=== PATIENT | female | born 1955 | race Caucasian/White ===

== ENCOUNTER 2023-11-05 12:03 | Emergency (ER) | payer OTHER, SELFPAY ==
[2023-11-05 12:24] VITALS: BP 135/90
[2023-11-05 13:02] LABS: ALT (SGPT) 14 U/L (0-35); AST (SGOT) 16 U/L (14-36); Albumin 3.8 g/dl (3.5-5.0); Alkaline Phosphatase 110 U/L (38-126); Blood Urea Nitrogen 11 mg/dl (7-17); Carbon Dioxide 30 mmol/L (22-30); Chloride 106 mmol/L (98-107); Glucose 108 mg/dl (70-99); Sodium 138 mmol/L (135-145); Total Bilirubin 0.6 mg/dl (0.2-1.3); Total Protein 6.8 g/dl (6.3-8.2); eGFR > 60.00
[2023-11-05 13:05] LABS: % Basophils 0.4 % (0-2); % Eosinophils 0.8 % (0-6); % Immature Granulocytes 0.5 % (0-0.5); % Lymphocytes 18.5 % (20.5-51.1); % Neutrophils 72.8 % (42.2-75.2); Absolute Eosinophils 0.1 10^3/uL (0-0.7); Absolute Immature Granulocytes 0.1 10^3/uL (0-0.05); Absolute Lymphocytes 1.9 10^3/uL (1.2-3.4); Absolute Monocytes 0.7 10^3/uL (0.1-0.6); Absolute Neutrophils 7.3 10^3/uL (1.4-6.5); Hematocrit 39.5 % (37.0-47.0); Hemoglobin 13.2 g/dL (12.0-16.0); Mean Corp Hgb Conc. 33.4 g/dL (33.0-37.0); Mean Corpuscular Hgb 29.5 pg (27.0-31.0); Mean Corpuscular Volume 88.4 fL (81.0-99.0); Mean Platelet Volume 9.3 fL (7.4-10.4); Nucleated Red Blood Cells % 0 %; Platelet Count 301 10^3/uL (130-400); Red Blood Cell Count 4.47 10^6/uL (4.20-5.40)
[2023-11-05 13:08] LABS: Urine Albumin Trace (Neg - Trace); Urine Bilirubin Negative (Negative); Urine Character Clear (Clear); Urine Color Yellow; Urine Glucose Negative (Negative); Urine Ketone Negative (Negative); Urine Leukocyte 2+ (Negative); Urine Nitrite Positive (Negative); Urine Occult Blood 4+ (Negative); Urine Urobilinogen Negative (Neg - 1+)
[2023-11-05 14:04] LABS: Urine Bacteria Moderate (Negative); Urine White Cell 16-20 /HPF (0-5)
[2023-11-05 14:05] LABS: Urine Red Blood Cell 0-2 /HPF (0-2)
--- NOTE | 2023-11-05 14:29 | ED.GENMED ---
Addendum entered and electronically signed by Jovan Jaeger PA-C 11/08/23 07:40:
Pansensitivity E coli, on appropriate abx
Addendum entered and electronically signed by Sheila Díaz PA-C 11/07/23 07:16:
e coli prelim urine culture, on cefpodoxime; await sensitivities.
Original Note:
History of Present Illness
General
Chief Complaint: Urinary Symptoms
Source: patient
Exam Limitations: none
Time Seen by Provider: 11/05/23 14:15
Nursing documentation reviewed up to this point in time: agreed with
Travel History
Have you had any contact with someone who has COVID-19?: No
Do you have any symptoms of coronavirus? Fever > 100 degrees, chills, cough, shortness of breath, sore throat, loss of taste or smell, muscle aches, or headache?: No
History of Present Illness
History of Present Illness:
67-year-old female with past medical history of hyperlipidemia presenting to the emergency department today with concerns of left-sided low back discomfort with associated progressive worsening urinary pressure over the past week. Worsening over
the past 24 hours. Denies specific fevers. Has had nausea no vomiting. Denies any history of kidney stones. Did notice a red discoloration of her urine today.
Past History
Past History
ED Past Medical History: Hypercholesterolemia
ED Past Surgical History: Gynecological
Review of Systems
Review of Systems
Allergies reviewed?: Yes
All Other Systems: ROS reviewed and negative except as documented in HPI and ROS
Phy Exam
Physical Exam
Physical Exam:
GENERAL: Alert , in no apparent distress
EYE: pupils equal and reactive
NECK: Supple, no significant adenopathy.
ENT: o/p clr, mmm.
CARDIAC: Regular rate and rhythm .
LUNGS: Clear breath sounds bilaterally, no acute respiratory distress, no wheezes/rales/rhonchi
ABDOMEN: Soft, without focal tenderness, no r/g, no cvat
NEUROLOGICAL: Alert and oriented, no focal neuro deficits
SKIN: Warm and dry, skin intact.
MUSCULOSKELETAL: No edema, well perfused.
PSYCH: Normal and appropriate interaction.
Course
Orders/Labs/Results
Orders:
Orders
11/05/23 12:35
Complete Blood Count/With Diff Urgent
Comprehensive Metabolic Panel Urgent
Urinalysis Reflex To Culture Urgent
Date Specimen was Collected: 11/05/23
Time Specimen was Collected: 12:27
Urine Microscopic Reflex Cult Urgent
Urine Culture Urgent
AUDREY Source: U
Specimen Description:
Date Specimen was Collected: 11/05/23
Time Specimen was Collected: 12:27
11/05/23 14:23
CT Abd/pel Without Iv Or Oral Urgent
Comment:
Reason For Exam: left flank pain, stone search
Ketorolac [Toradol] 30 mg IV NOW STA
Ondansetron Injectable [Zofran] 4 mg IV NOW STA
11/05/23 14:24
0.9% Sodium Chloride 1000 ml [Nss] 1,000 ml IV BOLUS
11/05/23 14:29
CefTRIAXone [Rocephin] 1,000 mg IV NOW STA
11/05/23 17:49
HYDROmorphone [Dilaudid] 1 mg IV NOW STA
11/05/23 18:03
Phenazopyridine HCl [Pyridium] 200 mg PO NOW STA
Abnormal Lab Results
11/05/23
12:35
Abs Immat Gran (auto) 0.1 H 10^3/uL
(0-0.05)
Absolute Neuts (auto) 7.3 H 10^3/uL
(1.4-6.5)
Absolute Monos (auto) 0.7 H 10^3/uL
(0.1-0.6)
Lymphocytes % 18.5 L %
(20.5-51.1)
Creatinine 0.5 L mg/dL
(0.6-1.0)
Glucose 108 H mg/dl
(70-99)
Ur Occult Blood Reflex 4+ A
(Negative)
Urine Nitrite (Reflex) Positive A
(Negative)
Leukocyte Esterase Rfl 2+ A
(Negative)
Urine WBC (Reflex) 16-20 A /HPF
(0-5)
Urine Bacteria (Reflex) Moderate A
(Negative)
11/05/23 12:35
11/05/23 12:35
Vital Signs
Initial and Last Documented VS:
Initial Vital Signs
Temp Pulse Resp BP Pulse Ox
98.2 F 81 16 135/90 98
11/05/23 12:24 11/05/23 12:24 11/05/23 12:24 11/05/23 12:24 11/05/23 12:24
Last Documented Vital Signs
Temp Pulse Resp BP Pulse Ox
98.2 F 81 16 135/90 98
11/05/23 12:24 11/05/23 12:24 11/05/23 12:24 11/05/23 12:24 11/05/23 12:24
MDM/Problems Addressed
MDM/Problems Addressed:
67-year-old female presenting to the emergency department today with concerns of initial left-sided flank discomfort that is now developed into urinary frequency urgency and hematuria. Upon arrival vital signs are normal. Patient does appear
uncomfortable on physical examination. No white count. Renal function normal. Urinalysis consistent with likely infection. Patient was started on ceftriaxone. Plan for CT scan for further assessment of possible stone. CT scan without emergent
findings labs without significant white count normal renal function urinalysis is consistent with UTI will start on ceftriaxone and will be discharged on cefpodoxime otherwise we will follow-up closely as an outpatient return precautions were given.
*Critical Care Note
Total Time (30-74mins, 75-104mins- exclusive of procedures): Not Applicable
ED Attending Note
-
Portions of this chart may have been created with voice recognition software.� Occasional wrong word or��sound alike� substitutions may have occurred due to the inherent limitations of voice recognition software.
Discharge Plan
Departure
Patient Disposition: Home (Routine Discharge)
Date of Disposition: 11/05/23
Time of Disposition: 18:12
Patient with high blood pressure during this ER visit?: No
Condition: Good
Covid-19: Not Applicable
Discharge Problem:
Acute UTI
Instructions: Urinary Tract Infection, Adult (DC)
Prescriptions:
New
cefpodoxime 200 mg tablet
200 mg PO BID 10 Days Qty: 20 0RF
phenazopyridine [Pyridium] 200 mg tablet
200 mg PO TID PRN (Reason: Pain) Qty: 6 0RF
No Action
amoxicillin-pot clavulanate 875-125 mg tablet
1 tab PO BID Qty: 20 0RF
famotidine 20 mg tablet
20 mg PO BID Qty: 14 0RF
Referrals:
Jose Jacobs DO [Family Provider] -
Activity Restrictions/Additional Instructions:
You came to the emergency department today with concerns of urinary symptoms. You are found have a urinary tract infection. You are treated with antibiotics believes take the antibiotic twice daily for the next 10 days and take the Pyridium for
discomfort. Return to the emergency department for any worsening, new or concerning symptoms. Otherwise follow-up closely with your primary care doctor for reassessment.
Interventions
Interventions:
*Risk Screen - Suicide Last Done: 11/05/23 16:27
*Neglect/Abuse Screening Last Done: 11/05/23 16:27
ED-Female Genitourinary Assessment Last Done: 11/05/23 16:21
[2023-11-05] MEDS: ROCEPHIN 1000 MG IV (14:42)
[2023-11-05] MEDS: TORADOL 30 MG IV (14:42)
[2023-11-05] MEDS: NSS 1000 IV (14:43)
[2023-11-05] MEDS: ZOFRAN 4 MG IV (14:43)
[2023-11-05] MEDS: DILAUDID 1 MG IV (18:10)
[2023-11-05] MEDS: Pyridium 200 MG PO (18:10)
[2023-11-05 18:47] VITALS: BP 151/81
== END 2023-11-05 18:48 | disposition home or self-care (01) ==
LOC: EMR 12:03
PROVIDERS: Emergency Medicine; EMERGENCY PHYSICIAN Emergency Medicine; FAMILY PHYSICIAN Family Medicine
DX: N39.0 Urinary tract infection, site not specified (principal)
CPT/HCPCS: 99284; 96374; 96375 ×3; 96361; 74176; 80053; 81003; 81015; 85025; 87077; 87086; 87186

== ENCOUNTER → 2025-02-16 11:53 | Outpatient (REF) | payer OTHER, SELFPAY | LOC: RAD 11:53 | PROVIDERS: ATTENDING PHYSICIAN Family Medicine | DX: Z12.31 Encounter for screening mammogram for malignant neoplasm of breast (principal); M54.32 Sciatica, left side | CPT/HCPCS: 72110; 77063; 77067 ==

== ENCOUNTER → 2025-02-26 09:45 | Outpatient (REF) | payer OTHER, SELFPAY | LOC: RAD 09:45 | PROVIDERS: ATTENDING PHYSICIAN Family Medicine | DX: Z78.0 Asymptomatic menopausal state (principal) | CPT/HCPCS: 77080 ==

== ENCOUNTER 2025-03-15 09:02 | Emergency (ER) | payer OTHER, SELFPAY ==
[2025-03-15 09:05] VITALS: BP 140/83
--- NOTE | 2025-03-15 09:21 | ED.GENMED ---
History of Present Illness
General
Chief Complaint: Cold/Flu/URI Symptoms
Source: patient and spouse
Exam Limitations: none
Time Seen by Provider: 03/15/25 09:15
Nursing documentation reviewed up to this point in time: agreed with
History of Present Illness
History of Present Illness:
The patient is a 69-year-old female who presented with symptoms beginning on the morning of the visit. She reported waking up 3 days ago with progressively developed a sore throat, clogged ears, and nasal congestion with discharge that is sometimes
clear and sometimes yellow. She noted having a non-productive cough and a fever of 102�F the previous night. At 4:00 AM, she began taking a cough syrup containing codeine. She mentioned exposure to her grandson, who has been sick. The patient denied
any chest pain but experienced some shortness of breath. Past respiratory issues include episodes of bronchitis and bronchopneumonia but no history of chronic obstructive pulmonary disease or asthma.
Past History
Past History
ED Past Medical History: Hypercholesterolemia
ED Past Surgical History: Gynecological
Review of Systems
Review of Systems
Allergies reviewed?: Yes
All Other Systems: ROS reviewed and negative except as documented in HPI and ROS
Phy Exam
Physical Exam
Physical Exam:
GENERAL: Alert , in no apparent distress
EYE: pupils equal and reactive
NECK: Supple, no significant adenopathy.
ENT: o/p clr, mmm.
CARDIAC: Regular rate and rhythm .
LUNGS: Diffuse expiratory wheezing
ABDOMEN: Soft, without focal tenderness, no r/g, no cvat
NEUROLOGICAL: Alert and oriented, no focal neuro deficits
SKIN: Warm and dry, skin intact.
MUSCULOSKELETAL: No edema, well perfused.
PSYCH: Normal and appropriate interaction.
Course
Orders/Labs/Results
Orders:
Orders
03/15/25 09:11
CR Chest - 2 Views Urgent
Comment:
Reason For Exam: cough, fever
03/15/25 09:21
Dexamethasone [Decadron] 10 mg PO NOW STA
Ipratropium/Albuterol Sulfate [Duoneb] 3 ml INH R NOW ONE
03/15/25 10:16
Ipratropium/Albuterol Sulfate [Duoneb] 3 ml INH R NOW ONE
03/15/25 12:05
Miscellaneous Order As Directed
Miscellaneous order: Ambulatory pulse ox for dispo decision
Vital Signs
Initial and Last Documented VS:
Initial Vital Signs
Temp Pulse Resp BP Pulse Ox
99.1 F 83 16 140/83 97
03/15/25 09:05 03/15/25 09:05 03/15/25 09:05 03/15/25 09:05 03/15/25 09:05
Last Documented Vital Signs
Temp Pulse Resp BP Pulse Ox
99.1 F 94 16 140/83 96
03/15/25 09:05 03/15/25 12:20 03/15/25 12:20 03/15/25 09:05 03/15/25 12:20
MDM/Problems Addressed
MDM/Problems Addressed:
Patient presenting with upper respiratory symptoms. Does have diffuse expiratory wheezing on examination. Likely reactive to likely viral syndrome.
- Administer steroids and breathing treatments for inflammation.
- Conduct a chest X-ray to evaluate for potential pneumonia.
- Monitor for possible secondary bacterial infection, including strep throat or pneumonia.
X-ray without evidence of pneumonia. Patient reassessed with improving wheezing. Amatory pulse ox of 96%. Patient stable for outpatient management return precautions given.
*Critical Care Note
Total Time (30-74mins, 75-104mins- exclusive of procedures): Not Applicable
ED Attending Note
-
Portions of this chart may have been created with voice recognition software.� Occasional wrong word or��sound alike� substitutions may have occurred due to the inherent limitations of voice recognition software.
Discharge Plan
Departure
Patient Disposition: Home (Routine Discharge)
Date of Disposition: 03/15/25
Time of Disposition: 12:46
Patient with high blood pressure during this ER visit?: No
Condition: Good
Covid-19: Not Applicable
Discharge Problem:
Wheeze
Instructions: Acute Bronchitis, Adult (DC)
Prescriptions:
New
prednisone 20 mg tablet
40 mg PO DAILY 4 Days Qty: 8 0RF
albuterol sulfate [Ventolin HFA] 90 mcg/actuation HFA aerosol inhaler
2 puff inhalation Q6H PRN (Reason: shortness of breath or wheezing) Qty: 8.5 0RF
No Action
amoxicillin-pot clavulanate 875-125 mg tablet
1 tab PO BID Qty: 20 0RF
famotidine 20 mg tablet
20 mg PO BID Qty: 14 0RF
cefpodoxime 200 mg tablet
200 mg PO BID 10 Days Qty: 20 0RF
phenazopyridine [Pyridium] 200 mg tablet
200 mg PO TID PRN (Reason: Pain) Qty: 6 0RF
Referrals:
Jose Jacobs DO [Family Provider, Family Practice]
Activity Restrictions/Additional Instructions:
You came to the emergency department today with concerns of significant wheeze. Please take the prescribed medications and follow-up close with the primary care doctor within 1 week. Return for any worsening, new or concerning symptoms.
Interventions
Interventions:
*Risk Screen - Suicide Last Done: 03/15/25 09:05
*General Assessment Last Done: 03/15/25 09:56
*Neglect/Abuse Screening Last Done: 03/15/25 09:05
*ED- Fall Risk Assessment Last Done: 03/15/25 09:56
ED- Pulmonary Assessment Last Done: 03/15/25 09:55
Discharge Date and Time
Print Language: LATVIAN
[2025-03-15] MEDS: DECADRON 10 MG PO (09:48)
[2025-03-15] MEDS: DUONEB 3 ML INH ×2 (09:48→10:42)
[2025-03-15 12:58] VITALS: BP 135/81
== END 2025-03-15 12:59 | disposition home or self-care (01) ==
LOC: EMR 09:02
PROVIDERS: EMERGENCY PHYSICIAN Emergency Medicine; FAMILY PHYSICIAN Family Medicine
DX: R06.2 Wheezing (principal); R05.9 Cough, unspecified; R50.9 Fever, unspecified; E78.00 Pure hypercholesterolemia, unspecified
CPT/HCPCS: 94640; 99284; 71046